=== PATIENT | male | born 1965 | race Caucasian/White ===

== ENCOUNTER 2022-06-05 06:31 | Emergency (ER) | payer BC ==
[2022-06-05 07:42] LABS: ALT (SGPT) 43 U/L (8-55); AST (SGOT) 61 U/L (5-34); Albumin 4.4 g/dL (3.5-5.0); Alkaline Phosphatase 90 U/L (40-110); Anion Gap 17 mmol/L (10-20); BUN (Urea Nitrogen) 16 mg/dL (8.4-25.7); Bilirubin, Total 0.7 mg/dL (0.2-1.2); Calc. Creatinine Clearance 0 mL/min (70-130); Calcium 9.4 mg/dL (7.8-10.44); Carbon Dioxide 25 mmol/L (22-29); Chloride 103 mmol/L (98-107); Estimated GFR 101; Globulin 3.5 g/dL (2.4-3.5); Glucose 121 mg/dL (70-105); Potassium 3.5 mmol/L (3.5-5.1); Protein, Total 7.9 g/dL (6.0-8.3); Sodium 141 mmol/L (136-145)
[2022-06-05 07:47] LABS: #Basophils 0.1 10x3/uL (0.0-0.2); #Eosinphils 0.2 10x3/uL (0.0-0.5); #Monocytes 0.6 10x3/uL (0.0-1.1); %Basophils 0.8 % (0.0-2.0); %Eosinophils 2.9 % (0.0-6.0); %Lymphocytes 29.5 % (18.0-47.0); %Monocytes 7.4 % (0.0-10.0); %Neutrophils 59.2 % (40.0-75.0); Hemoglobin 15.4 g/dL (13.5-17.5); Mean Corpuscular HGB CONC 35.2 g/dL (32.0-36.0); Mean Corpuscular Hemoglobin 31.8 pg (27.0-33.0); Mean Corpuscular Volume 90.5 fl (81.2-95.1); Mean Platelet Volume 11.4 fl (7.4-10.4); Platelet Count 104 10x3/uL (150-450); RBC Distribution Width 13.3 % (11.5-14.5); Red Blood Cell (RBC) Count 4.84 10x6/uL (4.32-5.72); White Blood Cell (WBC) Count 8.4 10x3/uL (3.5-10.5)
[2022-06-05 07:53] LABS: INR-International Normal Ratio 1.2; PTT 28.9 sec (22.0-33.0); Prothrombin Time 11.9 sec (9.5-12.1)
[2022-06-05] MEDS ORDERED: Boostrix 0.5 ML (Tdap) VIAL (>/=7 yrs of age) ONE (07:57)
[2022-06-05] MEDS ORDERED: Ondansetron PF 4 MG/2 ML Vial ONE (08:26)
[2022-06-05] MEDS ORDERED: Lidocaine 1% w/Epinephrine 1:200K 30 ML VIAL ONE (08:39)
[2022-06-05 08:43] LABS: Platelet Morphology Comment Appears Decreased; RBC Morphology Normal
[2022-06-05] MEDS ORDERED: Lidocaine 1% PF 5 ML VIAL ONE (08:44)
== END 2022-06-05 09:45 | disposition home or self-care (01) ==
LOC: CSHERS 06:31
DX: S01.321A Laceration with foreign body of right ear, initial encounter (principal); S83.92XA Sprain of unspecified site of left knee, initial encounter; I10 Essential (primary) hypertension; E78.5 Hyperlipidemia, unspecified; E78.00 Pure hypercholesterolemia, unspecified; Z87.891 Personal history of nicotine dependence; Z23 Encounter for immunization; W18.30XA Fall on same level, unspecified, initial encounter
CPT/HCPCS: 12011; 70450; 71045; 72125; 80053; 85025; 85610; 85730; 90471; 90715; 93005; 96374; J2405

== ENCOUNTER 2022-06-05 23:27 | Emergency (ER) | payer OTHER, BC | END 2022-06-06 02:55 | disposition home or self-care (01) | LOC: CSHERS 23:27 | DX: S01.01XA Laceration without foreign body of scalp, initial encounter (principal); E78.5 Hyperlipidemia, unspecified; E78.00 Pure hypercholesterolemia, unspecified; I10 Essential (primary) hypertension; Z87.891 Personal history of nicotine dependence; W01.198A Fall on same level from slipping, tripping and stumbling with subsequent striking against other object, initial encounter | CPT/HCPCS: 12002 ==

== ENCOUNTER 2022-06-12 10:06 | Outpatient (CLI) | payer BC | END 2022-06-12 10:07 | disposition home or self-care (01) | LOC: CSHCT 10:06 | PROVIDERS: ATTEND Psychiatry & Neurology Neurology | DX: G62.9 Polyneuropathy, unspecified (principal) | CPT/HCPCS: 70450 ==

== ENCOUNTER 2022-07-26 09:16 | Emergency (ER) | payer OTHER, BC ==
[2022-07-26 11:08] LABS: #Eosinphils 0.1 10x3/uL (0.0-0.5); #Monocytes 1.7 10x3/uL (0.0-1.1); %Basophils 0.3 % (0.0-2.0); %Eosinophils 0.8 % (0.0-6.0); %Lymphocytes 16.8 % (18.0-47.0); %Monocytes 14.3 % (0.0-10.0); %Neutrophils 67.2 % (40.0-75.0); Hemoglobin 11.2 g/dL (13.5-17.5); Mean Corpuscular HGB CONC 35.9 g/dL (32.0-36.0); Mean Corpuscular Hemoglobin 32.1 pg (27.0-33.0); Mean Corpuscular Volume 89.4 fl (81.2-95.1); Mean Platelet Volume 12.1 fl (7.4-10.4); Platelet Count 84 10x3/uL (150-450); RBC Distribution Width 13.4 % (11.5-14.5); Red Blood Cell (RBC) Count 3.49 10x6/uL (4.32-5.72); White Blood Cell (WBC) Count 11.9 10x3/uL (3.5-10.5)
[2022-07-26 11:15] LABS: INR-International Normal Ratio 1.1; Prothrombin Time 11.9 sec (9.5-12.1)
[2022-07-26 11:18] LABS: ALT (SGPT) 16 U/L (8-55); AST (SGOT) 30 U/L (5-34); Albumin 3.9 g/dL (3.5-5.0); Alkaline Phosphatase 68 U/L (40-110); Anion Gap 16 mmol/L (10-20); BUN (Urea Nitrogen) 15 mg/dL (8.4-25.7); Bilirubin, Total 2.9 mg/dL (0.2-1.2); CK (CPK) 46 U/L (30-200); Calc. Creatinine Clearance 0 mL/min (70-130); Calcium 8.5 mg/dL (7.8-10.44); Carbon Dioxide 23 mmol/L (22-29); Chloride 97 mmol/L (98-107); Estimated GFR 101; Globulin 3.1 g/dL (2.4-3.5); Glucose 156 mg/dL (70-105); Sodium 133 mmol/L (136-145)
[2022-07-26 11:36] LABS: Platelet Morphology Comment Appears Decreased; Stomatocytes SLIGHT = 2-5 cells (100X) (0-1/hpf)
== END 2022-07-26 13:10 | disposition home or self-care (01) ==
LOC: CSHERS 09:16
DX: S70.01XA Contusion of right hip, initial encounter (principal); S70.11XA Contusion of right thigh, initial encounter; R74.01 Elevation of levels of liver transaminase levels; D69.6 Thrombocytopenia, unspecified; E78.5 Hyperlipidemia, unspecified; E78.00 Pure hypercholesterolemia, unspecified; I10 Essential (primary) hypertension; Z87.891 Personal history of nicotine dependence; W01.0XXA Fall on same level from slipping, tripping and stumbling without subsequent striking against object, initial encounter
CPT/HCPCS: 36415; 70450; 71045; 80053; 82550; 85025; 85610; 85730

== ENCOUNTER 2022-11-05 08:32 | Emergency (ER) | payer BC ==
[2022-11-05] MEDS ORDERED: Thiamine HCl 200 MG/2 ML VIAL ONE (09:15)
[2022-11-05 10:12] LABS: #Basophils 0.1 10x3/uL (0.0-0.2); #Eosinphils 0.1 10x3/uL (0.0-0.5); #Monocytes 0.8 10x3/uL (0.0-1.1); #Neutrophils 3.2 10x3/uL (1.5-8.4); %Basophils 0.9 % (0.0-2.0); %Eosinophils 1.2 % (0.0-6.0); %Lymphocytes 38.2 % (18.0-47.0); %Monocytes 12.3 % (0.0-10.0); %Neutrophils 47.1 % (40.0-75.0); Hemoglobin 15.8 g/dL (13.5-17.5); Mean Corpuscular HGB CONC 34.6 g/dL (32.0-36.0); Mean Corpuscular Hemoglobin 31.7 pg (27.0-33.0); Mean Corpuscular Volume 91.6 fl (81.2-95.1); Mean Platelet Volume 11.2 fl (7.4-10.4); Platelet Count 147 10x3/uL (150-450); RBC Distribution Width 13.9 % (11.5-14.5); Red Blood Cell (RBC) Count 4.99 10x6/uL (4.32-5.72); White Blood Cell (WBC) Count 6.7 10x3/uL (3.5-10.5)
[2022-11-05 10:25] LABS: ALT (SGPT) 25 U/L (8-55); AST (SGOT) 30 U/L (5-34); Acetaminophen Less than 10.0 mcg/mL (10.0-30.0); Albumin 4.2 g/dL (3.5-5.0); Alcohol 247 mg/dL (Less than 10); Alkaline Phosphatase 69 U/L (40-110); Anion Gap 16 mmol/L (10-20); BUN (Urea Nitrogen) 11 mg/dL (8.4-25.7); Bilirubin, Total 0.5 mg/dL (0.2-1.2); CK (CPK) 72 U/L (30-200); Calc. Creatinine Clearance 0 mL/min (70-130); Calcium 9.1 mg/dL (7.8-10.44); Carbon Dioxide 25 mmol/L (22-29); Chloride 102 mmol/L (98-107); Estimated GFR 98; Globulin 3.5 g/dL (2.4-3.5); Glucose 121 mg/dL (70-105); Lipase 44 U/L (8-78); Potassium 3.9 mmol/L (3.5-5.1); Protein, Total 7.7 g/dL (6.0-8.3); Salicylate Less than 8.0 mg/dL (15.0-30.0); Sodium 139 mmol/L (136-145)
[2022-11-05 11:01] LABS: INR-International Normal Ratio 1.1; PTT 30.5 sec (22.0-33.0); Prothrombin Time 11.8 sec (9.5-12.1)
== END 2022-11-05 11:12 | disposition home or self-care (01) ==
LOC: CSHERS 08:32
DX: S16.1XXA Strain of muscle, fascia and tendon at neck level, initial encounter (principal); F10.129 Alcohol abuse with intoxication, unspecified; E72.20 Disorder of urea cycle metabolism, unspecified; E11.9 Type 2 diabetes mellitus without complications; E78.00 Pure hypercholesterolemia, unspecified; I10 Essential (primary) hypertension; Z87.891 Personal history of nicotine dependence
CPT/HCPCS: 12004; 70450; 72125; 80053; 80307; 82140; 82550; 83690; 84484; 85025; 85610; 85730; 93005; 96365; 96366; J3411